=== PATIENT | female | born 1935 | race Caucasian/White ===

== ENCOUNTER → 2017-03-10 | Outpatient (CLI) | payer MEDICARE, BC ==
--- NOTE | 2017-03-10 13:33 | CT ---
EXAMINATION TYPE: CT ChestAbdPelvis w con DATE OF EXAM: 03/10/2017 COMPARISON: CT abdomen and pelvis July 18, 2016 HISTORY: Colon cancer progress study after surgery May 2016. CT DLP: 1854 mGycm. Automated Exposure Control for Dose Reduction was Utilized. CONTRAST: CT scan of the thorax, abdomen and pelvis is performed with oral and with IV Contrast, patient inject ed with 80 mL of Visipaque 320. FINDINGS: LUNGS: Dependent atelectasis is seen in both lung bases. There are few tiny calcified nodules posteri josephine in the left lower lobe for reference axial image 28 and 29. No concerning greater than 5 mm nonc alcified parenchymal nodule or mass is present bilaterally. There is no pleural effusion or pneumot horax seen bilaterally. The tracheobronchial tree is patent. MEDIASTINUM: There are no greater than 1 cm hilar or mediastinal lymph nodes. No pericardial effusi on is seen. Heart size is mildly enlarged. Coronary artery calcification is present which is noted m arker for coronary artery disease. Thyroid gland is upper limits of normal in size. Other: Subcentimeter benign bilateral axillary are incidentally noted. LIVER/GB: A 1.4 cm low dense lesion left hepatic lobe on axial image 56 is stable and presumed benign . An 8 mm hypodense lesion right hepatic lobe on axial image 55 is stable and presumed benign. There is however new heterogeneous hypodense lobulated mass superior to this measuring 7.7 cm on long axis axial image 44 consistent with new large metastatic deposit. A few adjacent subcentimeter punctate hy podense lesions throughout the liver are noted and can be followed. No suspicious biliary dilatation is seen currently. PANCREAS: No significant abnormality is seen. SPLEEN: No significant abnormality is seen. ADRENALS: No significant abnormality is seen. KIDNEYS: No significant abnormality is seen. BOWEL: The oral contrast reaches level of transverse colon. There is no suspicious small or large bow el dilatation. There is redundant sigmoid colon present. GENITAL ORGANS: No gross abnormality seen. LYMPH NODES: No greater than 1cm abdominal or pelvic lymph nodes are appreciated. OSSEOUS STRUCTURES: There is joint space loss with spurring and subchondral cystic change at pubic sy mphysis. There is multilevel spurring in the spine. OTHER: There is moderate calcified plaque of aorta extending into branch vessels. IMPRESSION: New 7.7 cm liver lesion is consistent with metastatic neoplastic recurrence.
== END | disposition home or self-care (01) ==
LOC: RADCTMAIN 10:35
PROVIDERS: ATTEND Internal Medicine Hematology & Oncology
DX: K76.89 Other specified diseases of liver (principal); C18.2 Malignant neoplasm of ascending colon; Z88.8 Allergy status to other drugs, medicaments and biological substances
CPT/HCPCS: 82565; 84520; 71260; 74177; 36415; Q9967

== ENCOUNTER 2017-03-28 11:04 | Inpatient (IN) | payer MEDICARE, BC ==
--- NOTE | 2017-03-28 11:26 | ED ---
General Adult HPI - General Chief complaint: Syncope Stated complaint: Syncope Time Seen by Provider: 03/28/17 11:06 Source: patient, RN notes reviewed, old records reviewed Mode of arrival: wheelchair Limitations: no limitations - History of Present Illness Initial comments: This is an 81-year-old female to the ER today. This patient presents for evaluation regarding syncopal event evaluation, patient is syncopal event while getting a biopsy of her liver today. This is outpatient procedure. Patient is on blood thinners and did stop her blood thinners prior to procedure. Patient had rapid response called on her secondary to passing out, making very bradycardic diaphoretic and pale. Patient at this time also admits to abdominal pain. Patient was sent over after having CAT scan after procedure showing blood in abdomen. Patient doesn't continue to complain of abdominal pain but is not lightheaded dizzy or weak - Related Data Home Medications Medication Instructions Recorded Confirmed Acetaminophen Tab [Tylenol] 1,000 mg PO Q6HR PRN 05/30/16 03/28/17 amLODIPine [Norvasc] 10 mg PO DAILY 05/30/16 03/28/17 Apixaban [Eliquis] 5 mg PO BID 03/19/17 03/28/17 Ascorbic Acid [Vitamin C] 1,000 mg PO DAILY 03/19/17 03/28/17 Cholecalciferol [Vitamin D3] 1,000 unit PO DAILY 03/19/17 03/28/17 Ferrous Sulfate [Iron] 325 mg PO BID 03/19/17 03/28/17 Gabapentin [Neurontin] 300 mg PO TID 03/19/17 03/28/17 Metoprolol Succinate [Toprol XL] 50 mg PO DAILY 03/19/17 03/28/17 Sennosides [Senokot] 8.6 mg PO MOTH 03/19/17 03/28/17 Previous Rx's Medication Instructions Recorded Aspirin 81 mg PO DAILY #30 chewable 06/17/16 Allergies Allergy/AdvReac Type Severity Reaction Status Date / Time atorvastatin [From Lipitor] AdvReac LEG PAIN Verified 03/28/17 11:37 Review of Systems ROS Statement: Those systems with pertinent positive or pertinent negative responses have been documented in the HPI. ROS Other: All systems not noted in ROS Statement are negative. Past Medical History Past Medical History: Cancer, Deep Vein Thrombosis (DVT), GERD/Reflux, Hyperlipidemia, Hypertension, Osteoarthritis (OA) Additional Past Medical History / Comment(s): HIATAL HERNIA. LOW IRON. HAS PAIN IN BOTH ARMS SINCE DECEMBER 2015. RECENT STRESS TEST NL. 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 06/04/16 EGD , COLONOSCOPY. 06-12-16 LAP COLECTOMY Past Anesthesia/Blood Transfusion Reactions: Motion Sickness Additional Past Anesthesia/Blood Transfusion Reaction / Comment(s): "felt dizziness". Had blood transfusion with Colon surgery. Past Psychological History: No Psychological Hx Reported Smoking Status: Never smoker Past Alcohol Use History: None Reported Past Drug Use History: None Reported - Past Family History Brother(s) Family Medical History: Cancer, Neurologic Disorder Additional Family Medical History / Comment(s): PROSTATE CANCER Mother Family Medical History: Diabetes Mellitus Father Family Medical History: Coronary Artery Disease (CAD) Additional Family Medical History / Comment(s): HEART PROBLEMS Sister(s) Family Medical History: No Reported History Son(s) Family Medical History: Hypertension Daughter(s) Family Medical History: Unable to Obtain General Exam Limitations: no limitations General appearance: alert, in no apparent distress Head exam: Present: atraumatic, normocephalic, normal inspection Eye exam: Present: normal appearance, PERRL, EOMI. Absent: scleral icterus, conjunctival injection, periorbital swelling ENT exam: Present: normal exam, mucous membranes moist Neck exam: Present: normal inspection. Absent: tenderness, meningismus, lymphadenopathy Respiratory exam: Present: normal lung sounds bilaterally. Absent: respiratory distress, wheezes, rales, rhonchi, stridor Cardiovascular Exam: Present: regular rate, normal rhythm, normal heart sounds. Absent: systolic murmur, diastolic murmur, rubs, gallop, clicks GI/Abdominal exam: Present: soft, normal bowel sounds. Absent: distended, tenderness, guarding, rebound, rigid Extremities exam: Present: normal inspection, full ROM, normal capillary refill. Absent: tenderness, pedal edema, joint swelling, calf tenderness Back exam: Present: normal inspection Neurological exam: Present: alert, oriented X3, CN II-XII intact Psychiatric exam: Present: normal affect, normal mood Skin exam: Present: warm, dry, intact, normal color. Absent: rash Course Vital Signs 03/28/17 11:10 Temperature 98.7 F Pulse Rate 76 Respiratory 14 Rate Blood Pressure 125/58 O2 Sat by Pulse 94 L Oximetry - Reevaluation(s) Reevaluation #1: 03/28/17 13:01 Patient is without syncopal event here in the emergency room Medical Decision Making - Medical Decision Making 81 female the ER for evaluation. Patient was unsafe reevaluation regarding syncopal event, postop bleeding and abdominal pain. Versus vasovagal vasovagal postop procedure event. Patient will be admitted for hemodynamic monitoring - Lab Data Result diagrams: 03/28/17 12:15 03/28/17 12:15 Lab Results 03/28/17 03/28/17 03/28/17 Range/Units 12:15 12:15 12:15 WBC 10.9 H (3.8-10.6) k/uL RBC 3.24 L (3.80-5.40) m/uL Hgb 8.0 L (11.4-16.0) gm/dL Hct 25.4 L (34.0-46.0) % MCV 78.3 L (80.0-100.0) fL MCH 24.7 L (25.0-35.0) pg MCHC 31.5 (31.0-37.0) g/dL RDW 16.4 H (11.5-15.5) % Plt Count 426 (150-450) k/uL Neutrophils % 80 % Lymphocytes % 9 % Monocytes % 8 % Eosinophils % 1 % Basophils % 0 % Neutrophils # 8.7 H (1.3-7.7) k/uL Lymphocytes # 1.0 (1.0-4.8) k/uL Monocytes # 0.9 (0-1.0) k/uL Eosinophils # 0.1 (0-0.7) k/uL Basophils # 0.0 (0-0.2) k/uL Hypochromasia Slight Anisocytosis Slight Microcytosis Slight PT (9.0-12.0) sec INR (<1.2) APTT (22.0-30.0) sec D-Dimer (<0.60) mg/L FEU Sodium 133 L (137-145) mmol/L Potassium 4.4 (3.5-5.1) mmol/L Chloride 102 (98-107) mmol/L Carbon Dioxide 21 L (22-30) mmol/L Anion Gap 10 mmol/L BUN 23 H (7-17) mg/dL Creatinine 1.10 H (0.52-1.04) mg/dL Est GFR (MDRD) Af Amer 58 (>60 ml/min/1.73 sqM) Est GFR (MDRD) Non-Af 48 (>60 ml/min/1.73 sqM) Glucose 92 (74-99) mg/dL Calcium 8.4 (8.4-10.2) mg/dL Phosphorus 3.5 (2.5-4.5) mg/dL Magnesium 1.7 (1.6-2.3) mg/dL Total Bilirubin 0.6 (0.2-1.3) mg/dL AST 54 H (14-36) U/L ALT 76 H (9-52) U/L Alkaline Phosphatase 246 H (38-126) U/L Total Creatine Kinase 56 (30-135) U/L Total Protein 6.5 (6.3-8.2) g/dL Albumin 3.2 L (3.5-5.0) g/dL 03/28/17 Range/Units 12:15 WBC (3.8-10.6) k/uL RBC (3.80-5.40) m/uL Hgb (11.4-16.0) gm/dL Hct (34.0-46.0) % MCV (80.0-100.0) fL MCH (25.0-35.0) pg MCHC (31.0-37.0) g/dL RDW (11.5-15.5) % Plt Count (150-450) k/uL Neutrophils % % Lymphocytes % % Monocytes % % Eosinophils % % Basophils % % Neutrophils # (1.3-7.7) k/uL Lymphocytes # (1.0-4.8) k/uL Monocytes # (0-1.0) k/uL Eosinophils # (0-0.7) k/uL Basophils # (0-0.2) k/uL Hypochromasia Anisocytosis Microcytosis PT 12.2 H (9.0-12.0) sec INR 1.2 H (<1.2) APTT 23.4 (22.0-30.0) sec D-Dimer 1.90 H (<0.60) mg/L FEU Sodium (137-145) mmol/L Potassium (3.5-5.1) mmol/L Chloride (98-107) mmol/L Carbon Dioxide (22-30) mmol/L Anion Gap mmol/L BUN (7-17) mg/dL Creatinine (0.52-1.04) mg/dL Est GFR (MDRD) Af Amer (>60 ml/min/1.73 sqM) Est GFR (MDRD) Non-Af (>60 ml/min/1.73 sqM) Glucose (74-99) mg/dL Calcium (8.4-10.2) mg/dL Phosphorus (2.5-4.5) mg/dL Magnesium (1.6-2.3) mg/dL Total Bilirubin (0.2-1.3) mg/dL AST (14-36) U/L ALT (9-52) U/L Alkaline Phosphatase (38-126) U/L Total Creatine Kinase (30-135) U/L Total Protein (6.3-8.2) g/dL Albumin (3.5-5.0) g/dL - Radiology Data Radiology results: report reviewed (CT pelvis shows mild postop bleeding), image reviewed Disposition Clinical Impression: Vasovagal syncope, Syncope, Post-op bleeding Disposition: ADMITTED IP TO THIS [facility] Condition: Fair Referrals: Deborah Rdz MD [Primary Care Provider] - 1-2 days
[2017-03-28] MEDS ORDERED: SODIUM CHLORIDE 0.9% 500 ML IV STA (11:32)
[2017-03-28] MEDS ORDERED: SODIUM CHLORIDE 0.9% 1,000 ML IV STA (11:32)
[2017-03-28] MEDS ORDERED: RX INFO: IV CONTRAST WAS GIVEN 1 EACH MISC MISCELLANE PRN (12:07)
[2017-03-28 12:28] LABS: Anisocytosis Slight; Basophils % (A) 0 %; CH 24.7; CHCM 31.6; Eosinophils # (A) 0.1 k/uL (0-0.7); Eosinophils % (A) 1 %; HCT 25.4 % (34.0-46.0); HDW 2.69; Hypochromasia Slight; Luc # (Auto) 0.16; Luc % (Auto) 2; Lymphocytes % (A) 9 %; MCH 24.7 pg (25.0-35.0); MCHC 31.5 g/dL (31.0-37.0); MCV 78.3 fL (80.0-100.0); Mean Platelet Volume 6.9; Microcytosis Slight; Monocytes # (A) 0.9 k/uL (0-1.0); Monocytes % (A) 8 %; Neutrophils # (A) 8.7 k/uL (1.3-7.7); Neutrophils % (A) 80 %; RBC 3.24 m/uL (3.80-5.40); RDW 16.4 % (11.5-15.5); WBC 10.9 k/uL (3.8-10.6)
[2017-03-28 12:36] LABS: Calcium 8.4 mg/dL (8.4-10.2); Magnesium 1.7 mg/dL (1.6-2.3); Phosphorous 3.5 mg/dL (2.5-4.5); Potassium 4.4 mmol/L (3.5-5.1); Total Bilirubin 0.6 mg/dL (0.2-1.3); Total Protein 6.5 g/dL (6.3-8.2)
--- NOTE | 2017-03-28 12:39 | XR ---
EXAMINATION TYPE: XR chest 2V DATE OF EXAM: 03/28/2017 COMPARISON: CT chest abdomen and pelvis March 10, 2017. HISTORY: Hypotension and bradycardia after liver biopsy today. TECHNIQUE: Frontal and lateral views of the chest are obtained. FINDINGS: There is no focal air space opacity, pleural effusion, or pneumothorax seen. The cardiac silhouette size remains mildly enlarged with atherosclerotic aorta. The osseous structures are kike neralized. IMPRESSION: Cardiomegaly without suspicious acute pulmonary process.
[2017-03-28 12:42] LABS: INR 1.2 (<1.2); Partial Thromboplastin Time 23.4 sec (22.0-30.0); Prothrombin Time 12.2 sec (9.0-12.0)
[2017-03-28 12:49] LABS: Creatine Kinase 56 U/L (30-135)
[2017-03-28 13:02] LABS: Creatine Kinase MB <0.2 ng/mL (0.0-2.4); Troponin I <0.012 ng/mL (0.000-0.034)
--- NOTE | 2017-03-28 13:40 | P.HPIM ---
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 and she was sent back to [facility] for physical therapy rehabilitation she has done well with physical therapy and the patient on a surveillance computed tomography scan she was found to have a significant mass in the liver suggestive of metastatic disease patient ended up going for liver biopsy that was scheduled for today and the patient was off of her Eliquis 48 hours prior to the biopsy and after she has done the biopsy patient did receive a dose of Dilaudid half a milligram and she developed to have a significant dizziness lightheadedness and she had a presyncopal episode she felt nauseated diaphoretic her heart rate dropped to the low 30s and a rapid response team was called and patient was transported to the emergency department at [facility] and she was admitted to the hospital for evaluation and, she had a computed tomography scan of the abdomen and pelvis that showed some post procedural bleed, patient will be seen and evaluated by general surgery as well as by cardiology she was admitted to the telemetry unit. Review of Systems Constitutional: Reports weakness, Denies anorexia, Denies chronic headaches, Denies chronic pain, Denies lethargy, Denies weight gain, Denies weight loss Eyes: denies blurred vision, denies bulging eye, denies decreased vision Ears: bilateral: decreased hearing Ears, nose, mouth and throat: Denies dysphagia, Denies neck lump, Denies swelling in throat, Denies sore throat Cardiovascular: Reports high blood pressure, Reports syncope, Denies chest pain , Denies decreased exercise tolerance, Denies dyspnea on exertion, Denies irregular heart beat, Denies leg edema, Denies phlebitis, Denies rapid heart beat, Denies shortness of breath Respiratory: Denies congestion, Denies cough with sputum, Denies home oxygen, Denies pleurisy, Denies sleep apnea, Denies snoring, Denies wheezing Gastrointestinal: Reports abdominal pain, Reports bloating, Reports nausea, Denies diarrhea, Denies dyspepsia, Denies hematemesis, Denies hematochezia, Denies melena, Denies vomiting Genitourinary: Reports urge incontinence, Denies dysuria, Denies hematuria Menstruation: Reports post hysterectomy, Reports postmenopausal Musculoskeletal: Reports low back pain, Denies myalgias Musculoskeletal: absent: ankle pain, ankle stiffness, ankle swelling, elbow pain , elbow stiffness, elbow swelling, foot pain, foot stiffness, foot swelling, hand pain, hand stiffness, hand swelling, hip pain, hip stiffness, hip swelling , knee pain, knee stiffness, knee swelling, shoulder pain, shoulder stiffness, shoulder swelling, wrist pain, wrist stiffness, wrist swelling Integumentary: Denies pruritus, Denies rash Neurological: Denies numbness, Denies weakness Psychiatric: Denies anxiety, Denies depression Endocrine: Denies fatigue, Denies weight change Past Medical History Past Medical History: Cancer, Deep Vein Thrombosis (DVT), GERD/Reflux, Hyperlipidemia, Hypertension, Liver Disease, Neurologic Disorder (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 LOW IRON. HAS PAIN IN BOTH ARMS SINCE DECEMBER 2015. RECENT STRESS TEST NL. COLON CA CURRENTLY, Guillian-[place] Syndrome History of Any Multi-Drug Resistant Organisms: None Reported Past Surgical History: Hysterectomy, Tonsillectomy Additional Past Surgical History / Comment(s): EXC MACHELLE CATARACTS. 06/04/16 EGD , COLONOSCOPY. 06-12-16 LAP COLECTOMY Past Anesthesia/Blood Transfusion Reactions: Motion Sickness Additional Past Anesthesia/Blood Transfusion Reaction / Comment(s): "felt dizziness". Had blood transfusion with Colon surgery. Past Psychological History: No Psychological Hx Reported Smoking Status: Never smoker Past Alcohol Use History: None Reported Past Drug Use History: None Reported - Past Family History Brother(s) Family Medical History: Cancer (patient had one brother who from prostate cancer, and he had parkinson), Neurologic Disorder Additional Family Medical History / Comment(s): PROSTATE CANCER Mother Family Medical History: Coronary Artery Disease (CAD), Diabetes Mellitus ( mother at age 60 from diabetes mellitus type 2 as well as CAD.) Father Family Medical History: Coronary Artery Disease (CAD) (father in his early 60s from CAD.) Additional Family Medical History / Comment(s): HEART PROBLEMS Sister(s) Family Medical History: No Reported History Son(s) Family Medical History: Hypertension (patient has 2 sons with hypertension.) Daughter(s) Family Medical History: Unable to Obtain Medications and Allergies Home Medications Medication Instructions Recorded Confirmed Type Acetaminophen Tab [Tylenol] 1,000 mg PO Q6HR PRN 05/30/16 03/28/17 History amLODIPine [Norvasc] 10 mg PO DAILY 05/30/16 03/28/17 History Apixaban [Eliquis] 5 mg PO BID 03/19/17 03/28/17 History Ascorbic Acid [Vitamin C] 1,000 mg PO DAILY 03/19/17 03/28/17 History Cholecalciferol [Vitamin D3] 1,000 unit PO DAILY 03/19/17 03/28/17 History Ferrous Sulfate [Iron] 325 mg PO BID 03/19/17 03/28/17 History Gabapentin [Neurontin] 300 mg PO TID 03/19/17 03/28/17 History Metoprolol Succinate [Toprol XL] 50 mg PO DAILY 03/19/17 03/28/17 History Sennosides [Senokot] 8.6 mg PO MOTH 03/19/17 03/28/17 History Allergies Allergy/AdvReac Type Severity Reaction Status Date / Time atorvastatin [From Lipitor] AdvReac LEG PAIN Verified 03/28/17 11:37 Physical Exam Vitals: Vital Signs Temp Pulse Resp BP Pulse Ox 03/28/17 11:10 98.7 F 76 14 125/58 94 L Intake and Output 03/27/17 03/28/17 03/28/17 22:59 06:59 14:59 Other: Weight 70.307 kg Patient Weight 03/29/17 06:59 Weight 70.307 kg - Constitutional General appearance: no acute distress - EENT Eyes: anicteric sclerae, EOMI, PERRLA, no ptosis, no scleral icterus, normal appearance ENT: hard of hearing, NA/AT, normal oropharynx, no thrush Ears: bilateral: normal - Neck Neck: no lymphadenopathy, normal ROM, no rigidity, no stridor, no thyromegaly Carotids: bilateral: upstroke normal Thyroid: bilateral: normal size - Respiratory Respiratory: bilateral: diminished, negative: dullness, rales, rhonchi, wheezing , prolonged expiration, prolonged inspiration - Cardiovascular Rhythm: regular Heart sounds: normal: S1, S2 Abnormal Heart Sounds: systolic murmur, no rub, no S3 Gallop, no S4 Gallop, no click - Gastrointestinal General gastrointestinal: hyperactive bowel sounds, soft, no splenomegaly, tenderness, no umbilical hernia, no ventral hernia Localized gastrointestinal: tender: LLQ, guarding: LLQ - Integumentary Integumentary: normal, normal turgor - Neurologic Neurologic: CNII-XII intact - Musculoskeletal Musculoskeletal: generalized weakness, strength equal bilaterally - Psychiatric Psychiatric: A&O x's 3, appropriate affect, intact judgment & insight Results CBC & Chem 7: 03/28/17 12:15 03/28/17 12:15 Labs: Abnormal Lab Results - Last 24 Hours (Table) 03/28/17 03/28/17 Range/Units 12:15 12:15 WBC 10.9 H (3.8-10.6) k/uL RBC 3.24 L (3.80-5.40) m/uL Hgb 8.0 L (11.4-16.0) gm/dL Hct 25.4 L (34.0-46.0) % MCV 78.3 L (80.0-100.0) fL MCH 24.7 L (25.0-35.0) pg RDW 16.4 H (11.5-15.5) % Neutrophils # 8.7 H (1.3-7.7) k/uL Sodium 133 L (137-145) mmol/L Carbon Dioxide 21 L (22-30) mmol/L BUN 23 H (7-17) mg/dL Creatinine 1.10 H (0.52-1.04) mg/dL AST 54 H (14-36) U/L ALT 76 H (9-52) U/L Alkaline Phosphatase 246 H (38-126) U/L Albumin 3.2 L (3.5-5.0) g/dL Thrombosis Risk Factor Assmnt - DVT/VTE Prophylaxis DVT/VTE Prophylaxis: Mechanical Prophylaxis ordered Assessment and Plan Plan: Assessment and plan: 1. Vasovagal syncope likely related to administration of narcotics with minimal postprocedural bleeding. Admit the patient to the hospital, telemetry, IV fluid resuscitation normal saline at 100 mL an hour, patient will be seen and evaluated by cardiology, she will be also seen in consultation by general surgery, monitor the patient hemoglobin every 8 hours for the next 24 hours, patient will be kept in bedrest overnight. 2. History of colon cancer status post partial colectomy back in May 2016 with possible liver metastatic disease post liver biopsy. Await the final result of the biopsy. Patient has been under the care of hematology oncology Dr. De Souza. 3. DVT of the left lower extremity. Hold off the Eliquis for another 24 hours. 4. Hypertension and hypertensive cardiovascular disease. Continue patient on amlodipine 10 mg orally once every day as well as Toprol-XL 50 mg orally once every day. 5. Hyperlipidemia. Patient is intolerant for statin. 6. History of Guillain-Hughes syndrome. Continue gabapentin 300 mg orally 3 times every day. 7. Iron deficiency anemia. Continue patient on iron 325 mg orally twice every day. 8. DVT prophylaxis. Apply bilateral knee-high MARGOT hose. Hold Eliquis for another 24 hours until hemoglobin is stable because of the intra-abdominal bleed. 9. GI prophylaxis. Continue patient on Protonix 40 mg orally once every day. 10. Degenerative disc disease of the lumbar and thoracic spine. Stable at this time. 11. Patient is full code. 12. Admit to inpatient. Estimate a length of stay 2 midnights.
[2017-03-28 14:03] LABS: Appearance,Urine Clear (Clear); Bilirubin,Urine Negative (Negative); Glucose,Urine (UA) Negative (Negative); Ketones,Urine Negative (Negative); Leukocyte Esterase,Urine Negative (Negative); Nitrite,Urine Negative (Negative); PH, Urine 6.5 (5.0-8.0); Protein,Urine Trace (Negative); Specific Gravity,Urine 1.033 (1.001-1.035); UA Billing (MACRO vs. MICRO) CHEM; Urobilinogen,Urine <2.0 mg/dL (<2.0)
[2017-03-28] MEDS: GABAPENTIN 300 MG CAP PO SCH ×2 (15:17→22:31)
[2017-03-28] MEDS: ACETAMINOPHEN TAB 500 MG TAB PO PRN ×2 (15:49→22:31)
[2017-03-28 17:14] LABS: Anisocytosis Slight; Basophils % (A) 0 %; CH 24.9; CHCM 31.9; Eosinophils % (A) 0 %; HCT 25.1 % (34.0-46.0); HDW 2.75; HGB 7.6 gm/dL (11.4-16.0); Hypochromasia Slight; Luc # (Auto) 0.13; Luc % (Auto) 2; Lymphocytes # (A) 1.1 k/uL (1.0-4.8); Lymphocytes % (A) 13 %; MCH 23.8 pg (25.0-35.0); MCHC 30.4 g/dL (31.0-37.0); MCV 78.3 fL (80.0-100.0); Mean Platelet Volume 7.4; Microcytosis Slight; Monocytes # (A) 0.7 k/uL (0-1.0); Monocytes % (A) 8 %; Neutrophils # (A) 6.3 k/uL (1.3-7.7); Neutrophils % (A) 76 %; RDW 16.5 % (11.5-15.5); WBC 8.2 k/uL (3.8-10.6); WBC (Perox) 8.44
[2017-03-28 17:49] LABS: ALT 65 U/L (9-52); AST 51 U/L (14-36); Alkaline Phosphatase 220 U/L (38-126); Anion Gap 1 mmol/L; Blood Urea Nitrogen 21 mg/dL (7-17); Calcium 8.5 mg/dL (8.4-10.2); Carbon Dioxide 27 mmol/L (22-30); Chloride 106 mmol/L (98-107); Glucose 93 mg/dL (74-99); Magnesium 1.7 mg/dL (1.6-2.3); Non-African American GFR(MDRD) >60 (>60 ml/min/1.73 sqM); Potassium 4.8 mmol/L (3.5-5.1); Sodium 134 mmol/L (137-145); Total Bilirubin 0.7 mg/dL (0.2-1.3); Total Protein 6.1 g/dL (6.3-8.2)
[2017-03-28] MEDS: FERROUS SULFATE 325 MG TAB PO SCH (22:31)
[2017-03-29 07:27] VITALS: RESP 16
[2017-03-29] MEDS ORDERED: PANTOPRAZOLE 40 MG TABLET PO SCH (07:30)
[2017-03-29] MEDS: GABAPENTIN 300 MG CAP PO SCH (07:56)
[2017-03-29] MEDS: FERROUS SULFATE 325 MG TAB PO SCH (07:57)
[2017-03-29 08:09] VITALS: BP 154/85; PULSE 98; TEMP 97
[2017-03-29 08:23] LABS: Anisocytosis Slight; Basophils % (A) 1 %; CH 23.9; CHCM 30.2; Eosinophils # (A) 0.2 k/uL (0-0.7); Eosinophils % (A) 3 %; HCT 25.4 % (34.0-46.0); HDW 2.79; HGB 7.8 gm/dL (11.4-16.0); Hypochromasia Marked; Luc # (Auto) 0.12; Luc % (Auto) 2; Lymphocytes # (A) 1.2 k/uL (1.0-4.8); Lymphocytes % (A) 15 %; MCH 24.4 pg (25.0-35.0); MCHC 30.7 g/dL (31.0-37.0); MCV 79.6 fL (80.0-100.0); Mean Platelet Volume 6.8; Monocytes # (A) 0.5 k/uL (0-1.0); Monocytes % (A) 6 %; Neutrophils # (A) 5.8 k/uL (1.3-7.7); Neutrophils % (A) 74 %; RBC 3.19 m/uL (3.80-5.40); RDW 16.1 % (11.5-15.5); WBC 7.9 k/uL (3.8-10.6); WBC (Perox) 8.24
[2017-03-29 08:39] LABS: ALT 71 U/L (9-52); AST 39 U/L (14-36); Alkaline Phosphatase 233 U/L (38-126); Anion Gap 10 mmol/L; Blood Urea Nitrogen 15 mg/dL (7-17); Calcium 8.9 mg/dL (8.4-10.2); Carbon Dioxide 22 mmol/L (22-30); Chloride 106 mmol/L (98-107); Glucose 121 mg/dL (74-99); Non-African American GFR(MDRD) >60 (>60 ml/min/1.73 sqM); Potassium 3.9 mmol/L (3.5-5.1); Sodium 138 mmol/L (137-145); Total Bilirubin 0.4 mg/dL (0.2-1.3); Total Protein 6.6 g/dL (6.3-8.2)
[2017-03-29] MEDS ORDERED: CHOLECALCIFEROL 1,000 UNIT TAB PO SCH (09:00)
[2017-03-29] MEDS ORDERED: ASCORBIC ACID 500 MG TAB PO SCH (09:00)
[2017-03-29] MEDS ORDERED: amLODIPine 10 MG TAB PO SCH (09:00)
[2017-03-29] MEDS ORDERED: METOPROLOL SUCCINATE (ER) 50 MG TAB.ER.24H PO SCH (09:00)
--- NOTE | 2017-03-29 11:34 | P.GSCN ---
History of Present Illness Consult date: 03/29/17 Reason for Consult: Metastatic colon cancer History of present illness: This is a 81-year-old female well-known to myself. Patient underwent a liver biopsy at [facility]. Patient had some postoperative bleeding from the liver biopsy. She was transferred here. Today the patient states her pain is almost entirely resolved. She has had no signs of hypotension. Past Medical History Past Medical History: Cancer, Deep Vein Thrombosis (DVT), GERD/Reflux, Hyperlipidemia, Hypertension, Liver Disease, Neurologic Disorder, Osteoarthritis (OA) Additional Past Medical History / Comment(s): HIATAL HERNIA. LOW IRON. HAS PAIN IN BOTH ARMS SINCE DECEMBER 2015. RECENT STRESS TEST NL. COLON CA CURRENTLY, Guillian-Hannibal Syndrome History of Any Multi-Drug Resistant Organisms: None Reported Past Surgical History: Hysterectomy, Tonsillectomy Additional Past Surgical History / Comment(s): EXC MACHELLE CATARACTS. 06/04/16 EGD , COLONOSCOPY. 06-12-16 LAP COLECTOMY Past Anesthesia/Blood Transfusion Reactions: Motion Sickness Additional Past Anesthesia/Blood Transfusion Reaction / Comm: "felt dizziness". Had blood transfusion with Colon surgery. Past Psychological History: No Psychological Hx Reported Additional Psychological History / Comment(s): PT RESIDES WITH HER SPOUSE IN AN APARTMENT CONNECTED TO THEIR SON AND [place] HOME. PT IS AMBULATING WITH A WHEELED WALKER WITH A SEAT AND HAS A CANE. SHE DOES NOT DRIVE, HER SPOUSE DRIVES HER TO APPTS. Smoking Status: Never smoker Past Alcohol Use History: None Reported Past Drug Use History: None Reported - Past Family History Brother(s) Family Medical History: Cancer, Neurologic Disorder Additional Family Medical History / Comment(s): PROSTATE CANCER Mother Family Medical History: Coronary Artery Disease (CAD), Diabetes Mellitus Father Family Medical History: Coronary Artery Disease (CAD) Additional Family Medical History / Comment(s): HEART PROBLEMS Sister(s) Family Medical History: No Reported History Son(s) Family Medical History: Hypertension Daughter(s) Family Medical History: Unable to Obtain Medications and Allergies Home Medications Medication Instructions Recorded Confirmed Type Acetaminophen Tab [Tylenol] 1,000 mg PO Q6HR PRN 05/30/16 03/28/17 History amLODIPine [Norvasc] 10 mg PO DAILY 05/30/16 03/28/17 History Apixaban [Eliquis] 5 mg PO BID 03/19/17 03/28/17 History Ascorbic Acid [Vitamin C] 1,000 mg PO DAILY 03/19/17 03/28/17 History Cholecalciferol [Vitamin D3] 1,000 unit PO DAILY 03/19/17 03/28/17 History Ferrous Sulfate [Iron] 325 mg PO BID 03/19/17 03/28/17 History Gabapentin [Neurontin] 300 mg PO TID 03/19/17 03/28/17 History Metoprolol Succinate [Toprol XL] 50 mg PO DAILY 03/19/17 03/28/17 History Sennosides [Senokot] 8.6 mg PO MOTH 03/19/17 03/28/17 History Allergies Allergy/AdvReac Type Severity Reaction Status Date / Time atorvastatin [From Lipitor] AdvReac LEG PAIN Verified 03/28/17 11:37 hydromorphone [From Dilaudid] AdvReac Hypotensive, Verified 03/29/17 09:10 Bradycardia Surgical - Exam Vital Signs Temp Pulse Resp BP Pulse Ox 98.7 F 76 14 125/58 94 L 03/28/17 11:10 03/28/17 11:10 03/28/17 11:10 03/28/17 11:10 03/28/17 11:10 - General well nourished, no distress - Eyes PERRL - ENT normal pinna - Neck no masses - Respiratory normal expansion - Cardiovascular Rhythm: regular - Abdomen Abdomen: soft, non tender Results - Labs 03/29/17 07:59 03/29/17 07:59 Abnormal Lab Results - Last 24 Hours (Table) 03/28/17 03/28/17 03/28/17 Range/Units 12:15 12:15 12:15 WBC 10.9 H (3.8-10.6) k/uL RBC 3.24 L (3.80-5.40) m/uL Hgb 8.0 L (11.4-16.0) gm/dL Hct 25.4 L (34.0-46.0) % MCV 78.3 L (80.0-100.0) fL MCH 24.7 L (25.0-35.0) pg MCHC (31.0-37.0) g/dL RDW 16.4 H (11.5-15.5) % Neutrophils # 8.7 H (1.3-7.7) k/uL PT 12.2 H (9.0-12.0) sec INR 1.2 H (<1.2) D-Dimer 1.90 H (<0.60) mg/L FEU Sodium 133 L (137-145) mmol/L Carbon Dioxide 21 L (22-30) mmol/L BUN 23 H (7-17) mg/dL Creatinine 1.10 H (0.52-1.04) mg/dL Glucose (74-99) mg/dL AST 54 H (14-36) U/L ALT 76 H (9-52) U/L Alkaline Phosphatase 246 H (38-126) U/L Total Protein (6.3-8.2) g/dL Albumin 3.2 L (3.5-5.0) g/dL Urine Protein (Negative) 03/28/17 03/28/17 03/28/17 Range/Units 13:47 16:40 16:40 WBC (3.8-10.6) k/uL RBC 3.20 L (3.80-5.40) m/uL Hgb 7.6 L (11.4-16.0) gm/dL Hct 25.1 L (34.0-46.0) % MCV 78.3 L (80.0-100.0) fL MCH 23.8 L (25.0-35.0) pg MCHC 30.4 L (31.0-37.0) g/dL RDW 16.5 H (11.5-15.5) % Neutrophils # (1.3-7.7) k/uL PT (9.0-12.0) sec INR (<1.2) D-Dimer (<0.60) mg/L FEU Sodium 134 L (137-145) mmol/L Carbon Dioxide (22-30) mmol/L BUN 21 H (7-17) mg/dL Creatinine (0.52-1.04) mg/dL Glucose (74-99) mg/dL AST 51 H (14-36) U/L ALT 65 H (9-52) U/L Alkaline Phosphatase 220 H (38-126) U/L Total Protein 6.1 L (6.3-8.2) g/dL Albumin 2.9 L (3.5-5.0) g/dL Urine Protein Trace H (Negative) 03/29/17 03/29/17 Range/Units 07:59 07:59 WBC (3.8-10.6) k/uL RBC 3.19 L (3.80-5.40) m/uL Hgb 7.8 L (11.4-16.0) gm/dL Hct 25.4 L (34.0-46.0) % MCV 79.6 L (80.0-100.0) fL MCH 24.4 L (25.0-35.0) pg MCHC 30.7 L (31.0-37.0) g/dL RDW 16.1 H (11.5-15.5) % Neutrophils # (1.3-7.7) k/uL PT (9.0-12.0) sec INR (<1.2) D-Dimer (<0.60) mg/L FEU Sodium (137-145) mmol/L Carbon Dioxide (22-30) mmol/L BUN (7-17) mg/dL Creatinine (0.52-1.04) mg/dL Glucose 121 H (74-99) mg/dL AST 39 H (14-36) U/L ALT 71 H (9-52) U/L Alkaline Phosphatase 233 H (38-126) U/L Total Protein (6.3-8.2) g/dL Albumin 3.3 L (3.5-5.0) g/dL Urine Protein (Negative) Microbiology - Last 24 Hours (Table) 03/28/17 13:47 Urine Culture - Preliminary Urine,Voided Diabetes panel 03/28/17 03/28/17 03/29/17 Range/Units 12:15 16:40 07:59 Sodium 133 L 134 L 138 (137-145) mmol/L Potassium 4.4 4.8 3.9 (3.5-5.1) mmol/L Chloride 102 106 106 (98-107) mmol/L Carbon Dioxide 21 L 27 22 (22-30) mmol/L BUN 23 H 21 H 15 (7-17) mg/dL Creatinine 1.10 H 0.80 0.82 (0.52-1.04) mg/dL Glucose 92 93 121 H (74-99) mg/dL Calcium 8.4 8.5 8.9 (8.4-10.2) mg/dL AST 54 H 51 H 39 H (14-36) U/L ALT 76 H 65 H 71 H (9-52) U/L Alkaline Phosphatase 246 H 220 H 233 H (38-126) U/L Total Protein 6.5 6.1 L 6.6 (6.3-8.2) g/dL Albumin 3.2 L 2.9 L 3.3 L (3.5-5.0) g/dL Calcium panel 03/28/17 03/28/17 03/29/17 Range/Units 12:15 16:40 07:59 Calcium 8.4 8.5 8.9 (8.4-10.2) mg/dL Phosphorus 3.5 (2.5-4.5) mg/dL Albumin 3.2 L 2.9 L 3.3 L (3.5-5.0) g/dL Pituitary panel 03/28/17 03/28/17 03/29/17 Range/Units 12:15 16:40 07:59 Sodium 133 L 134 L 138 (137-145) mmol/L Potassium 4.4 4.8 3.9 (3.5-5.1) mmol/L Chloride 102 106 106 (98-107) mmol/L Carbon Dioxide 21 L 27 22 (22-30) mmol/L BUN 23 H 21 H 15 (7-17) mg/dL Creatinine 1.10 H 0.80 0.82 (0.52-1.04) mg/dL Glucose 92 93 121 H (74-99) mg/dL Calcium 8.4 8.5 8.9 (8.4-10.2) mg/dL Adrenal panel 03/28/17 03/28/17 03/29/17 Range/Units 12:15 16:40 07:59 Sodium 133 L 134 L 138 (137-145) mmol/L Potassium 4.4 4.8 3.9 (3.5-5.1) mmol/L Chloride 102 106 106 (98-107) mmol/L Carbon Dioxide 21 L 27 22 (22-30) mmol/L BUN 23 H 21 H 15 (7-17) mg/dL Creatinine 1.10 H 0.80 0.82 (0.52-1.04) mg/dL Glucose 92 93 121 H (74-99) mg/dL Calcium 8.4 8.5 8.9 (8.4-10.2) mg/dL Total Bilirubin 0.6 0.7 0.4 (0.2-1.3) mg/dL AST 54 H 51 H 39 H (14-36) U/L ALT 76 H 65 H 71 H (9-52) U/L Alkaline Phosphatase 246 H 220 H 233 H (38-126) U/L Total Protein 6.5 6.1 L 6.6 (6.3-8.2) g/dL Albumin 3.2 L 2.9 L 3.3 L (3.5-5.0) g/dL Assessment and Plan Plan: Colon cancer with hepatic metastases. Patient appears to be stable for discharge. She'll follow-up as an outpatient.
--- NOTE | 2017-03-29 16:39 | P.DS ---
Providers Date of admission: 03/28/17 12:10 Attending physician: Deborah Rdz Consults: 03/28/17 15:38 Consult Physician Routine Consulting Provider: Leigh Dumont Consult Reason/Comments: syncope, bradycardia Do you want consulting provider notified?: Yes 03/28/17 17:21 Consult Physician Routine Consulting Provider: Jeffrey Marina Consult Reason/Comments: post op bleeding Do you want consulting provider notified?: Yes Primary care physician: Deborah Rdz [facility] Course: This is an 81-year-old female agent of Dr. 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 for physical therapy rehabilitation she has done well with physical therapy and the patient on a surveillance computed tomography scan she was found to have a significant mass in the liver suggestive of metastatic disease patient ended up going for liver biopsy that was scheduled for today and the patient was off of her Eliquis 48 hours prior to the biopsy and after she has done the biopsy patient did receive a dose of Dilaudid half a milligram she developed to have a significant dizziness lightheadedness and she had a presyncopal episode she felt nauseated diaphoretic her heart rate dropped to the low 30s and a rapid response team was called and patient was transported to the emergency department at [facility] and she was admitted to the hospital for evaluation and, she had a computed tomography scan of the abdomen and pelvis that showed some post procedural bleed, patient will be seen and evaluated by general surgery as well as by cardiology she was admitted to the telemetry unit. 03/29: Patient has stable hemoglobin, patient was evaluated by general surgery, and was cleared by Dr. Cheyenne Bragg, were still anticipating cardiology to see her however patient wanted to be discharged home today without the cardiology, they were complaining about multiple doctor visits that they still have to undergo chemotherapy, patient's heart rate has been stable during the rest of her hospital stay, with no episodes of bradycardia or hypotension, patient's maintain on beta blockers during her stay with lowest heart rate in the 60s. eliquiswould be started on 03/30/2017 with outpatient consult with cardiology, event monitor for at least 14 days was recommended and CBC to be done in few days DISCHARGE DIAGNOSIS 1. Vasovagal syncope likely related to administration of narcotics with minimal postprocedural bleeding with bradycardia during the procedure off CT- guided liver biopsy. Admit the patient to the hospital, telemetry, IV fluid resuscitation normal saline at 100 mL an hour, patient will be seen and evaluated by cardiology, she will be also seen in consultation by general surgery, hemodynamically stable hemoglobin was monitored along with vital signs , cardiology consultation was made however patient refused to stay and wait for cardiology, event monitor to be done as an outpatient, outpatient cardiology follow-up. 2. History of colon cancer status post partial colectomy back in May 2016 with possible liver metastatic disease post liver biopsy. Await the final result of the biopsy. Patient has been under the care of hematology oncology Dr. De Souza. 3. DVT of the left lower extremity. Hold off the Eliquis for another 24 hours. 4. Hypertension and hypertensive cardiovascular disease. Continue patient on amlodipine 10 mg orally once every day as well as Toprol-XL 50 mg orally once every day. 5. Hyperlipidemia. Patient is intolerant for statin. 6. History of Guillain-Hughes syndrome. Continue gabapentin 300 mg orally 3 times every day. 7. Iron deficiency anemia. Continue patient on iron 325 mg orally twice every day. 8. DVT prophylaxis. Apply bilateral knee-high MARGOT hose. Hold Eliquis for another 24 hours until hemoglobin is stable because of the intra-abdominal bleed. 9. GI prophylaxis. Continue patient on Protonix 40 mg orally once every day. 10. Degenerative disc disease of the lumbar and thoracic spine. Stable at this time. 11. Patient is full code. Discharge Medication List Acetaminophen Tab [Tylenol] 1,000 mg PO Q6HR PRN 05/30/16 [History] amLODIPine [Norvasc] 10 mg PO DAILY 05/30/16 [History] Aspirin 81 mg PO DAILY #30 chewable 06/17/16 [Rx] Ascorbic Acid [Vitamin C] 1,000 mg PO DAILY 03/19/17 [History] Cholecalciferol [Vitamin D3] 1,000 unit PO DAILY 03/19/17 [History] Ferrous Sulfate [Iron] 325 mg PO BID 03/19/17 [History] Gabapentin [Neurontin] 300 mg PO TID 03/19/17 [History] Metoprolol Succinate [Toprol XL] 50 mg PO DAILY 03/19/17 [History] Sennosides [Senokot] 8.6 mg PO MOTH 03/19/17 [History] Apixaban [Eliquis] 5 mg PO BID #0 03/29/17 [Rx] Patient Condition at Discharge: Fair Plan - Discharge Summary New Discharge Prescriptions: Continue Acetaminophen Tab [Tylenol] 1,000 mg PO Q6HR PRN PRN Reason: Pain amLODIPine [Norvasc] 10 mg PO DAILY Aspirin 81 mg PO DAILY #30 chewable Cholecalciferol [Vitamin D3] 1,000 unit PO DAILY Ascorbic Acid [Vitamin C] 1,000 mg PO DAILY Sennosides [Senokot] 8.6 mg PO MOTH Ferrous Sulfate [Iron] 325 mg PO BID Metoprolol Succinate [Toprol XL] 50 mg PO DAILY Gabapentin [Neurontin] 300 mg PO TID Apixaban [Eliquis] 5 mg PO BID #0 Discharge Medication List Acetaminophen Tab [Tylenol] 1,000 mg PO Q6HR PRN 05/30/16 [History] amLODIPine [Norvasc] 10 mg PO DAILY 05/30/16 [History] Aspirin 81 mg PO DAILY #30 chewable 06/17/16 [Rx] Ascorbic Acid [Vitamin C] 1,000 mg PO DAILY 03/19/17 [History] Cholecalciferol [Vitamin D3] 1,000 unit PO DAILY 03/19/17 [History] Ferrous Sulfate [Iron] 325 mg PO BID 03/19/17 [History] Gabapentin [Neurontin] 300 mg PO TID 03/19/17 [History] Metoprolol Succinate [Toprol XL] 50 mg PO DAILY 03/19/17 [History] Sennosides [Senokot] 8.6 mg PO MOTH 03/19/17 [History] Apixaban [Eliquis] 5 mg PO BID #0 03/29/17 [Rx] Follow up Appointment(s)/Referral(s): Leigh Dumont MD [STAFF PHYSICIAN] - 1 Week (Please call to make an appointment.) Deborah Rdz MD [Primary Care Provider] - 1-2 days (Please call to make an appointment) Gilbert Alfonso MD [STAFF PHYSICIAN] - 2 Weeks (event monitor Please call to make an appointment ) Ambulatory/Diagnostic Orders: Basic Metabolic Panel [LAB.AMB] Location: Determined By Patient Complete Blood Count w/diff [LAB.AMB] Location: Determined By Patient Patient Instructions/Handouts: Syncope (DC), Postoperative Bleeding (DC) Discharge Disposition: HOME SELF-CARE
[2017-03-31] MEDS ORDERED: SENNOSIDES 8.6 MG TAB PO SCH (09:00)
== END 2017-03-29 15:03 | disposition home or self-care (01) | DRG 920 ==
LOC: EC 11:04 → 3SUR 12:10
PROVIDERS: ADMIT Internal Medicine; ATTEND Internal Medicine
DX: K91.840 Postprocedural hemorrhage of a digestive system organ or structure following a digestive system procedure (principal); G61.0 Guillain-Barre syndrome; C78.7 Secondary malignant neoplasm of liver and intrahepatic bile duct; I11.9 Hypertensive heart disease without heart failure; G61.81 Chronic inflammatory demyelinating polyneuritis; C18.9 Malignant neoplasm of colon, unspecified; D50.9 Iron deficiency anemia, unspecified; R00.1 Bradycardia, unspecified; E78.5 Hyperlipidemia, unspecified; M19.90 Unspecified osteoarthritis, unspecified site; K44.9 Diaphragmatic hernia without obstruction or gangrene; M51.34 Other intervertebral disc degeneration, thoracic region; R55 Syncope and collapse; H91.90 Unspecified hearing loss, unspecified ear; T40.605A Adverse effect of unspecified narcotics, initial encounter; R01.1 Cardiac murmur, unspecified; R53.1 Weakness; R11.0 Nausea; R10.9 Unspecified abdominal pain; M51.36 Other intervertebral disc degeneration, lumbar region; K21.9 Gastro-esophageal reflux disease without esophagitis; Z90.49 Acquired absence of other specified parts of digestive tract; Z79.899 Other long term (current) drug therapy; Z82.49 Family history of ischemic heart disease and other diseases of the circulatory system; Z83.3 Family history of diabetes mellitus; Z82.0 Family history of epilepsy and other diseases of the nervous system; Z79.01 Long term (current) use of anticoagulants; Z88.5 Allergy status to narcotic agent; Z88.8 Allergy status to other drugs, medicaments and biological substances; Z98.42 Cataract extraction status, left eye; Z98.41 Cataract extraction status, right eye; Z90.710 Acquired absence of both cervix and uterus; Z79.82 Long term (current) use of aspirin; Z80.42 Family history of malignant neoplasm of prostate; Z86.718 Personal history of other venous thrombosis and embolism; Z91.19 Patient's noncompliance with other medical treatment and regimen; Z78.0 Asymptomatic menopausal state; Y84.8 Other medical procedures as the cause of abnormal reaction of the patient, or of later complication, without mention of misadventure at the time of the procedure; Y73.0 Diagnostic and monitoring gastroenterology and urology devices associated with adverse incidents; Y92.234 Operating room of hospital as the place of occurrence of the external cause
CPT/HCPCS: 36415; 71020; 80053; 81003; 82550; 82553; 83735; 84100; 84484; 85025; 85379; 85610; 85730; 87086; 96360; 96361; 99285

== ENCOUNTER → 2017-03-28 | Day surgery (SDC) | payer MEDICARE, BC ==
[~2017-03-28] MED LIST: ALPRAZolam 0.25 MG TAB PO ONE; HYDROmorphone 1 MG/ML 1 ML SYRINGE IVP PRN
[2017-03-28 09:12] VITALS: TEMP 98.5
[2017-03-28 09:20] LABS: Mean Platelet Volume 7.3
[2017-03-28 09:28] LABS: INR 1.3 (<1.2); Prothrombin Time 12.4 sec (9.0-12.0)
--- NOTE | 2017-03-28 11:21 | CT ---
EXAMINATION TYPE: CT abdomen pelvis w con DATE OF EXAM: 03/28/2017 COMPARISON: CT chest abdomen pelvis 03/10/2017 HISTORY: post op liver bx complications CT DLP: 792 mGycm Automated exposure control for dose reduction was used. TECHNIQUE: Helical acquisition of images from the lung bases through the pelvis have been completed. CONTRAST: Performed without Oral Contrast and with IV Contrast, patient injected with 100 mL of Omnipaque 300. FINDINGS: LUNG BASES: Dependent atelectatic changes are noted.. AORTA: No significant abnormality is appreciated. LIVER/GB: The abnormal foci within the liver are again noted suggestive of metastatic disease. There is fluid around the liver which shows Hounsfield measurement of approximately 40. Punctate foci of ai r present within the fluid likely due to post biopsy change. Fluid courses along the right paracolic gutter and into the pelvis. Gallbladder is stable PANCREAS: Some fluid is present anterior to the pancreas.. SPLEEN: There is some fluid about the spleen. ADRENALS: No significant abnormality is seen. KIDNEYS: No significant abnormality is seen. REPRODUCTIVE ORGANS: Right ovarian cystic focus is present BOWEL: Postop changes are noted to the right colon. FREE AIR: As noted above punctate focus of air within the fluid anterior to the liver. ASCITES: As discussed fluid is present about the liver and spleen, anterior to the pancreas and into the pelvis. PELVIC ADENOPATHY: None visualized. RETROPERITONEAL ADENOPATHY: No Retroperitoneal Adenopathy visible. URINARY BLADDER: No significant abnormality is seen. OSSEOUS STRUCTURES: No significant abnormality is seen. IMPRESSION: POSSIBLE POST BIOPSY HEMORRHAGE. CASE DISCUSSED WITH DR. LONDONO TELEPHONICALLY AT THE TIME OF INTERP RETATION.
--- NOTE | 2017-03-28 12:15 | US ---
EXAMINATION TYPE: US biopsy liver DATE OF EXAM: 03/28/2017 HISTORY: Liver mass. FINDINGS: Maximal barrier technique was utilized. The skin overlying a suitable path to the patient' s mass was localized with ultrasound and the overlying skin prepped and draped. Ultrasound was utili zed with sterile technique. Lidocaine was used for local anesthesia. A skin karen was made with a sc alpel. An 18-gauge needle was advanced under direct ultrasound guidance and core specimen obtained o f the mass. 2 passes performed. Specimen submitted in formalin to Pathology. Following the procedure , hemostasis achieved and the patient remained in stable condition. I was called to the bedside approximately 10 minutes following the procedure. Patient was noted to handy ve decreased blood pressure and decreased heart rate in the level of 30 bpm. Patient spontaneously im proved, supportive measures including hydration initiated. Additional alerted staff immediately at th e bedside. Once stabilized, CT scan of the abdomen performed. Patient released to the care of emergen cy department. IMPRESSION:STATUS POST ULTRASOUND GUIDED CORE BIOPSY OF liver MASS, PATHOLOGY IS PENDING. THIS PROCE DURE IS PERFORMED BY THE UNDERSIGNED. Possible postprocedure bleeding, vasovagal event.
[2017-03-28 13:47] VITALS: BP 100/60; PULSE 78; RESP 16
== END ==
LOC: RADPROMAIN 08:40
PROVIDERS: ATTEND Internal Medicine Hematology & Oncology
DX: C22.7 Other specified carcinomas of liver (principal); Z88.8 Allergy status to other drugs, medicaments and biological substances
CPT/HCPCS: 85049; 85610; 88342; 88307; 88341; 36415; 47000; 76942; 74177; J1170; Q9967

== ENCOUNTER → 2017-04-08 | Outpatient (CLI) | payer MEDICARE, BC ==
--- NOTE | 2017-04-08 09:33 | US ---
EXAMINATION TYPE: US abdomen limited DATE OF EXAM: 04/08/2017 COMPARISON: US and CT CLINICAL HISTORY: R10.84 ABD PAIN. ABD pain, pt has known mets to liver, recent liver BX EXAM MEASUREMENTS: Liver Length: 15.1 cm Gallbladder Wall: 0.2 cm CBD: 0.7 cm Right Kidney: 10.5 x 4.3 x 4.4 cm Pancreas: wnl, tail obscured by overlying bowel gas Liver: Heterogeneous with large, vague solid mass right lobe= 6.6 x 6.3 x 7.6 cm/ Cystic lesion left medial lobe= 1.2 x 0.9 x 1.1 cm Gallbladder: Polyps within lumen Evidence for sonographic Sanders's sign: No CBD: wnl Right Kidney: wnl, lower pole difficult to visualize Small amount of ascites right flank, no evidence of hematoma IMPRESSION: 1. Large heterogenous solid mass which has been sampled recently. 2. Small amount of ascites in the right flank region without distinct hematoma this time.
== END | disposition home or self-care (01) ==
LOC: RADUSWWP 08:09
PROVIDERS: ATTEND Internal Medicine Hematology & Oncology
DX: R19.09 Other intra-abdominal and pelvic swelling, mass and lump (principal); C18.2 Malignant neoplasm of ascending colon; Z88.8 Allergy status to other drugs, medicaments and biological substances
CPT/HCPCS: 76705

== ENCOUNTER → 2017-04-12 | Outpatient (CLI) | payer MEDICARE, BC ==
--- NOTE | 2017-04-12 19:24 | PE ---
EXAMINATION TYPE: PET CT fusion skull to thigh DATE OF EXAM: 04/12/2017 COMPARISON: CT abdomen pelvis 07/07/2017 Prior PET/CT: None HISTORY: Colorectal cancer TECHNIQUE: Following the intravenous administration of 10.23 mCi of F-18 FDG, whole body images are performed from the skull base to the midthigh. Images are reviewed on the computer in the coronal, a xial, and sagittal planes. Reconstructed rotating images are created on independent workstation and reviewed on the computer. A localization and attenuation correction CT is performed in conjunction with the PET scan. DLP: 316.67 mGycm SCAN: Initial Blood glucose: 85 mg/dL Average Mediastinum SUV: 1.5 Average Liver SUV: 2.4 FINDINGS: NECK: No abnormal uptake THORAX: No abnormal uptake ABDOMEN: There is a large hyper intense area within the superior right lobe liver measuring an SUV of 9 compatible with a metastatic lesion. This appears to be solitary within the liver. An additional h ypoechoic area within the medial left lobe liver measures 2.2 Hounsfield units. PELVIS: There is some hypodensity within the lateral right hemipelvis upper portion lateral to the co sindi. This has some peripheral uptake, greatest value appears to be approximately 3.6. As could be a m etastatic lesion. OSSEOUS STRUCTURES: No abnormal uptake LOCALIZATION CT: There appears to be retroesophageal vascular structure in the upper thorax posterior ly. Pretracheal lymph node is present which is not enlarged by CT criteria and has an intermediate si gnal measuring 1.8 Hounsfield units. The ascending thoracic aorta at the level of the main pulmonary artery measures 3.4 cm. Main pulmonary artery at the bifurcation measures 1.9 cm. Vascular calcificat ions within the aorta. Postsurgical changes are right lower quadrant. The low density region in the r ight hemipelvis is again evident. A second smaller hypodensity within the obturator canal region on t he right has low signal uptake. A lymphangioma could be considered. Series 3 image 195. COMPARISON: Ascites present previously has resolved. IMPRESSION: 1. Metastatic lesion within the liver may be solitary. 2. There is some right inguinal and obturator canal adenopathy suspected although significant increas e in metabolic activity is not identified.
== END | disposition home or self-care (01) ==
LOC: RADPETMAIN 09:27
PROVIDERS: ATTEND Internal Medicine Hematology & Oncology
DX: C78.7 Secondary malignant neoplasm of liver and intrahepatic bile duct (principal); C18.2 Malignant neoplasm of ascending colon
CPT/HCPCS: 78815; A9552

== ENCOUNTER 2017-04-14 09:02 | Day surgery (SDC) | payer MEDICARE, BC ==
[2017-04-10 10:23] VITALS: BMI 23.3
[~2017-04-14 09:02] MED LIST changes: -ALPRAZolam 0.25 MG TAB PO ONE; -HYDROmorphone 1 MG/ML 1 ML SYRINGE IVP PRN; +LACTATED RINGERS 1,000 ML IV SCH; +LIDOCAINE 1% 20 ML VIAL (10MG/ML) FOR IV START INTRADERMA PRN
[2017-04-14 10:43] VITALS: TEMP 97.5
[2017-04-14] MEDS ORDERED: LIDOCAINE 1% INJ 10MG/ML (20 ML MDV) ONE (12:57)
[2017-04-14] MEDS ORDERED: PROPOFOL 10 MG/ML 20 ML VIAL IV ONE (12:57)
--- NOTE | 2017-04-14 13:01 | P.GSHP ---
History of Present Illness H&P Date: 04/14/17 Chief Complaint: Anemia, metastatic carcinoma The patient presents today for EGD. She is undergoing workup for anemia. She' s been recently diagnosed with metastatic adenocarcinoma of the liver Past Medical History Past Medical History: Cancer, Deep Vein Thrombosis (DVT), GERD/Reflux, Hyperlipidemia, Hypertension, Liver Disease, Neurologic Disorder, Osteoarthritis (OA) Additional Past Medical History / Comment(s): HIATAL HERNIA. LOW IRON. HAS PAIN IN BOTH ARMS SINCE DECEMBER 2015. RECENT STRESS TEST NL. COLON CA CURRENTLY, Guillian-Jesup Syndrome History of Any Multi-Drug Resistant Organisms: None Reported Past Surgical History: Hysterectomy, Tonsillectomy Additional Past Surgical History / Comment(s): EXC MACHELLE CATARACTS. 06/04/16 EGD , COLONOSCOPY. 06-12-16 LAP COLECTOMY Past Anesthesia/Blood Transfusion Reactions: Motion Sickness Additional Past Anesthesia/Blood Transfusion Reaction / Comment(s): "felt dizziness". Had blood transfusion with Colon surgery. Smoking Status: Never smoker - Past Family History Brother(s) Family Medical History: Cancer, Neurologic Disorder Additional Family Medical History / Comment(s): PROSTATE CANCER Mother Family Medical History: Coronary Artery Disease (CAD), Diabetes Mellitus Father Family Medical History: Coronary Artery Disease (CAD) Additional Family Medical History / Comment(s): HEART PROBLEMS Sister(s) Family Medical History: No Reported History Son(s) Family Medical History: Hypertension Daughter(s) Family Medical History: Unable to Obtain Medications and Allergies Home Medications Medication Instructions Recorded Confirmed Type Acetaminophen Tab [Tylenol] 1,000 mg PO Q6HR PRN 05/30/16 04/14/17 History amLODIPine [Norvasc] 10 mg PO DAILY 05/30/16 04/14/17 History Ascorbic Acid [Vitamin C] 1,000 mg PO DAILY 03/19/17 04/14/17 History Cholecalciferol [Vitamin D3] 1,000 unit PO DAILY 03/19/17 04/14/17 History Ferrous Sulfate [Iron] 325 mg PO BID 03/19/17 04/14/17 History Gabapentin [Neurontin] 300 mg PO TID 03/19/17 04/14/17 History Metoprolol Succinate [Toprol XL] 50 mg PO DAILY 03/19/17 04/14/17 History Sennosides [Senokot] 8.6 mg PO MOTH 03/19/17 04/14/17 History traMADol HCL [Ultram] 50 mg PO Q6HR PRN 04/10/17 04/14/17 History Allergies Allergy/AdvReac Type Severity Reaction Status Date / Time atorvastatin [From Lipitor] AdvReac LEG PAIN Verified 04/14/17 10:45 hydromorphone [From Dilaudid] AdvReac Hypotensive, Verified 04/14/17 10:45 Bradycardia Surgical - Exam Vital Signs Temp Pulse Resp BP Pulse Ox 97.5 F L 98 18 141/64 99 04/14/17 10:39 04/14/17 10:39 04/14/17 10:39 04/14/17 10:39 04/14/17 10:39 - General well developed, no distress - Eyes PERRL - ENT normal pinna - Neck no masses - Respiratory normal expansion - Cardiovascular Rhythm: regular - Abdomen Abdomen: soft, non tender Assessment and Plan Plan: History of metastatic adenocarcinoma. We will perform EGD. -
[2017-04-14 13:19] VITALS: RESP 16
--- NOTE | 2017-04-14 13:23 | P.OP ---
Date of Procedure: 04/14/17 Preoperative Diagnosis: Anemia Metastatic liver carcinoma Postoperative Diagnosis: Antral gastritis Hiatal hernia Mild esophagitis Procedure(s) Performed: EGD Implants: Anesthesia: MAC Surgeon: Jeffrey Marina Pathology: other (Antrum, esophagus) Condition: stable Disposition: PACU Indications for Procedure: Operative Findings: Description of Procedure: Patient's placed on the endoscopy table in the lateral position and she received IV sedation. The gastroscope was placed oropharynx passed in the esophagus and into the stomach. Scope was then placed through the pylorus. The first and second portion of the duodenum appeared normal. Scope was then brought back the antrum and this appeared mildly inflamed. Biopsies performed. Scope was unretroflexed and remainder of the stomach appeared normal. The GE junction was at 40 cm. There was a moderate hiatal hernia. The GE junction was examined and there is evidence of esophagitis. The proximal esophagus appeared normal. Scope was withdrawn for patient.
[2017-04-14 13:38] VITALS: BP 138/73; PULSE 82
== END 2017-04-14 13:44 | disposition home or self-care (01) ==
LOC: ORWHC2ENDO 09:02
PROVIDERS: ATTEND Surgery
DX: K21.0 Gastro-esophageal reflux disease with esophagitis (principal); K44.9 Diaphragmatic hernia without obstruction or gangrene; K29.50 Unspecified chronic gastritis without bleeding; D64.9 Anemia, unspecified; C78.7 Secondary malignant neoplasm of liver and intrahepatic bile duct; C18.9 Malignant neoplasm of colon, unspecified; E78.5 Hyperlipidemia, unspecified; I10 Essential (primary) hypertension; G61.0 Guillain-Barre syndrome; M19.90 Unspecified osteoarthritis, unspecified site; Z86.718 Personal history of other venous thrombosis and embolism; Z79.01 Long term (current) use of anticoagulants; Z79.82 Long term (current) use of aspirin; Z79.899 Other long term (current) drug therapy
CPT/HCPCS: 88305; 43239; J2001; J2704; 88342

== ENCOUNTER → 2017-04-17 | Outpatient (CLI) | payer MEDICARE, BC ==
--- NOTE | 2017-04-17 14:10 | MR ---
EXAMINATION TYPE: MR MRCP DATE OF EXAM: 04/17/2017 COMPARISON: NONE HISTORY: colon cancer CONTRAST: Performed utilizing 0 mL intravenous Gadavist gadolinium contrast. TECHNIQUE: Multiplanar, multiecho imaging on a 3.0 Eleni magnet is performed through the liver. Dedic ated Three-D reconstructed images through the biliary collecting system was performed. There is a lar ge hepatic lesion which has been previously biopsied and proven metastatic lesion. Small hemangioma may be near the dome of the liver. Smaller metastatic disease may be considered at t he right dome of the diaphragm within the liver, the periphery of the liver and within the left lobe of the liver. Gallbladder is unremarkable. Common bile duct is somewhat prominent. This is estimated to measure 1.1 cm. Normal is up to 0.8 cm in a patient of this age. No pancreatic head abnormality is identified. P ancreatic duct is visualized appears normal. The intrahepatic and extrahepatic biliary ducts appear n ormal. IMPRESSIONS: 1. Known large hepatic metastasis. Additional small hyperintense areas are scattered within the left and right lobes liver suspicious for additional smaller metastases. 2. No biliary obstruction identified. The common bile duct is prominent.
== END | disposition home or self-care (01) ==
LOC: RADMRIMAIN 10:40
PROVIDERS: ATTEND Internal Medicine Hematology & Oncology
DX: C78.7 Secondary malignant neoplasm of liver and intrahepatic bile duct (principal); C18.2 Malignant neoplasm of ascending colon
CPT/HCPCS: 74181

== ENCOUNTER 2017-04-29 06:18 | Day surgery (SDC) | payer MEDICARE, BC ==
[2017-04-28 08:38] VITALS: BMI 23.8
[~2017-04-29 06:18] MED LIST changes: +DEXAMETHASONE SOD PHOSPHATE 10 MG/ML 1 ML VIAL IV ONE; +HEPARIN SODIUM,PORCINE 5,000 UNIT/ML 1 ML VIAL SQ ONE; -LIDOCAINE 1% 20 ML VIAL (10MG/ML) FOR IV START INTRADERMA PRN; +MIDAZOLAM 2 MG/2 ML VIAL IV PRN; +ONDANSETRON 4 MG/2 ML VIAL IVP ONE; +Pre Op ABX Message 1 EACH MISC MISCELLANE ONE; +fentaNYL (PF) 50 MCG/ML 2 ML AMP IV PRN
[2017-04-29 06:42] VITALS: RESP 18; TEMP 97.5
[2017-04-29] MEDS ORDERED: LACTATED RINGERS 1,000 ML IV ONE (06:49)
[2017-04-29] MEDS ORDERED: IOHEXOL 300 MG/ML 50 ML BOTTLE MISCELLANE ONE (07:29)
--- NOTE | 2017-04-29 07:50 | P.GSHP ---
History of Present Illness H&P Date: 04/29/17 Chief Complaint: Metastatic bowel cancer This 81-year-old female who's recent diagnosed with metastatic small bowel cancer. Patient presents today for Port-A-Cath insertion. Past Medical History Past Medical History: Cancer, Deep Vein Thrombosis (DVT), GERD/Reflux, Hyperlipidemia, Hypertension, Liver Disease, Neurologic Disorder, Osteoarthritis (OA) Additional Past Medical History / Comment(s): HIATAL HERNIA. LOW IRON. HAS PAIN IN BOTH ARMS SINCE DECEMBER 2015. RECENT STRESS TEST NL. 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 06/04/16 EGD , COLONOSCOPY. 06-12-16 LAP COLECTOMY , EGD-04/03 Past Anesthesia/Blood Transfusion Reactions: Motion Sickness Additional Past Anesthesia/Blood Transfusion Reaction / Comment(s): "felt dizziness". Had blood transfusion with Colon surgery. Smoking Status: Never smoker - Past Family History Brother(s) Family Medical History: Cancer, Neurologic Disorder Additional Family Medical History / Comment(s): PROSTATE CANCER. PARKINSON'S Mother Family Medical History: Coronary Artery Disease (CAD), Diabetes Mellitus Father Family Medical History: Coronary Artery Disease (CAD) Additional Family Medical History / Comment(s): HEART PROBLEMS Sister(s) Family Medical History: No Reported History Son(s) Family Medical History: Cancer, Hypertension, Prostate Disorder Additional Family Medical History / Comment(s): ONE SON HAS HAD SKIN CANCER, HTN AND PROSTATE PROBLEMS. OTHER SONE HAS EYE DISEASE Daughter(s) Family Medical History: Unable to Obtain Medications and Allergies Home Medications Medication Instructions Recorded Confirmed Type Acetaminophen Tab [Tylenol] 1,000 mg PO Q6HR PRN 05/30/16 04/28/17 History amLODIPine [Norvasc] 10 mg PO DAILY 05/30/16 04/28/17 History Aspirin 81 mg PO DAILY #30 chewable 06/17/16 04/28/17 Rx Ascorbic Acid [Vitamin C] 1,000 mg PO DAILY 03/19/17 04/28/17 History Cholecalciferol [Vitamin D3] 1,000 unit PO DAILY 03/19/17 04/28/17 History Ferrous Sulfate [Iron] 325 mg PO BID 03/19/17 04/28/17 History Gabapentin [Neurontin] 300 mg PO TID 03/19/17 04/28/17 History Metoprolol Succinate [Toprol XL] 50 mg PO DAILY 03/19/17 04/28/17 History Sennosides [Senokot] 8.6 mg PO MOTH 03/19/17 04/28/17 History Apixaban [Eliquis] 5 mg PO BID #0 03/29/17 04/28/17 Rx traMADol HCL [Ultram] 50 mg PO Q6HR PRN 04/10/17 04/28/17 History Allergies Allergy/AdvReac Type Severity Reaction Status Date / Time atorvastatin [From Lipitor] AdvReac LEG PAIN Verified 04/28/17 08:30 hydromorphone [From Dilaudid] AdvReac Hypotensive, Verified 04/28/17 08:30 Bradycardia Surgical - Exam Vital Signs Temp Pulse Resp BP Pulse Ox 97.5 F L 111 H 18 134/73 99 04/29/17 06:41 04/29/17 06:41 04/29/17 06:41 04/29/17 06:41 04/29/17 06:41 - General well developed, no distress - Eyes PERRL - ENT normal pinna - Neck no masses - Respiratory normal expansion - Cardiovascular Rhythm: regular - Abdomen Abdomen: soft, non tender Assessment and Plan Plan: Metastatic small bowel cancer liver. We'll perform Port-A-Cath placement.
[2017-04-29] MEDS ORDERED: fentaNYL (PF) 50 MCG/ML 2 ML AMP ONE (07:54)
[2017-04-29] MEDS ORDERED: PROPOFOL 10 MG/ML 20 ML VIAL IV ONE (07:54)
[2017-04-29] MEDS ORDERED: ePHEDrine SULFATE/0.9% NACL/PF 50 MG/5 ML SYRINGE IV ONE (07:54)
[2017-04-29] MEDS ORDERED: LIDOCAINE 2%-EPI 1:100,000 20 ML VIAL SQ ONE (08:18)
--- NOTE | 2017-04-29 08:42 | P.OP ---
Date of Procedure: 04/29/17 Preoperative Diagnosis: Metastatic small bowel cancer Postoperative Diagnosis: Metastatic small bowel cancer Procedure(s) Performed: Right subclavian Port-A-Cath placement Implants: Anesthesia: MAC Surgeon: Jeffrey Marina Estimated Blood Loss (ml): 5 Pathology: none sent Condition: stable Disposition: PACU Indications for Procedure: Operative Findings: Description of Procedure: PROCEDURE: The patient was placed on the operating table in the supine position. She received MAC anesthetic. The Right chest was prepped and draped in the usual sterile fashion. The skin underneath the right clavicle was anesthetized with 1% Xylocaine and using Seldinger technique, the right subclavian vein was cannulized. The wire was placed through the needle and positioned under fluoroscopy. Next, the needle was removed and the port site was anesthetized with 1% Xylocaine. Skin was incised with #15 blade and port pocket was made using blunt and sharp dissection. Following this the catheter was attached to the sport and the port was flushed. The port was positioned into the pocket site and was secured with 3-0 Vicryl suture. The catheter was then brought out through the wire site and then the dilator sheath was placed over the wire and the dilator and the wire were removed. The catheter was placed through the sheath and the sheath was removed. The port was flushed with hep-lock solution. Skin was closed with interrupted 3-0 Vicryl sutures. Steri-Strips were applied. The patient tolerated the procedure well. The patient was sent to recovery room for chest x -ray after the procedure.
[2017-04-29 09:04] VITALS: BP 125/58; PULSE 86
--- NOTE | 2017-04-29 09:06 | XR ---
EXAMINATION TYPE: XR chest 1V DATE OF EXAM: 04/29/2017 COMPARISON: Prior chest x-ray 03/28/2017 HISTORY: Status post Port-A-Cath placement TECHNIQUE: Single frontal view of the chest is obtained. FINDINGS: There is no focal air space opacity, pleural effusion, or pneumothorax seen. The cardiac silhouette size is within normal limits. Right-sided Port-A-Cath is present, distal tip is overlying the superior vena cava level right subclavian approach. The osseous structures are intact. IMPRESSION: No evident complication status post Port-A-Cath catheter placement.
--- NOTE | 2017-04-29 10:50 | FL ---
Fluoroscopy HISTORY: Port placement 10 seconds fluoroscopy time supplied to the referring clinician. 1 intraoperative C-arm images docum ent the procedure. See dictated report from general surgery.
== END 2017-04-29 09:42 | disposition home or self-care (01) ==
LOC: OR 06:18
PROVIDERS: ATTEND Surgery
DX: C78.4 Secondary malignant neoplasm of small intestine (principal); Z86.718 Personal history of other venous thrombosis and embolism; Z79.01 Long term (current) use of anticoagulants; I10 Essential (primary) hypertension; E78.5 Hyperlipidemia, unspecified; K21.9 Gastro-esophageal reflux disease without esophagitis; C18.9 Malignant neoplasm of colon, unspecified; C78.7 Secondary malignant neoplasm of liver and intrahepatic bile duct; E61.1 Iron deficiency; M19.90 Unspecified osteoarthritis, unspecified site; G61.0 Guillain-Barre syndrome; Z79.82 Long term (current) use of aspirin; Z79.891 Long term (current) use of opiate analgesic; Z79.899 Other long term (current) drug therapy; Z88.5 Allergy status to narcotic agent; Z88.8 Allergy status to other drugs, medicaments and biological substances
CPT/HCPCS: 77001; 71010; 36561; C1788; J1644; J1100; J2405; J3010; J1642; J2704; Q9967